=== PATIENT | female | born 1965 | race Caucasian/White ===

== ENCOUNTER 2018-05-04 06:20 | Day surgery (SDC) | payer MEDICAID ==
[2018-05-04] MEDS ORDERED: MIDAZOLAM 1 MG/ML 2 ML INJ ×4 (08:50→08:51)
[2018-05-04] MEDS ORDERED: FENTAnyl 50 MCG/ML VIAL (08:50)
== END 2018-05-04 18:19 | disposition home or self-care (01) ==
LOC: GIL 06:20
DX: Z12.11 Encounter for screening for malignant neoplasm of colon (principal); K64.8 Other hemorrhoids; E78.5 Hyperlipidemia, unspecified
CPT/HCPCS: 45378